=== PATIENT | female | born 1995 | race Caucasian/White ===

== ENCOUNTER 2016-07-08 15:21 | Emergency (ER) | payer OTHER ==
--- NOTE | 2016-07-08 16:20 | EDPHY ---
H & P Smoking Status: Never smoked Time Seen by Provider: 07/08/16 16:16 HPI/ROS: HPI: 21-year-old female presents to emergency department with chief concern head injury and left ankle injury. Slipped getting into the shower last night and struck the left side of her head on the wall. There was no loss of consciousness. She did not injure her neck or back. Reports left anterior ankle pain, bruising, swelling. Ambulating with discomfort. Reports 4/10 headache and foggy feeling. Reports associated nausea. No aggravating or alleviating factors. Denies dizziness, visual changes, midline neck pain, weakness, numbness, tingling of her extremities, vomiting, lack of coordination or balance. No other joint pain or injury. Student at [employer]. She is a restaurant hostess at a restaurant. ROS:10 point review of systems is negative other than as stated in HPI (Yumi Solomon) Social History: [employer] student (Yumi Solomon) Physical Exam: Vital signs stable, reviewed by me General: Awake, calm, cooperative. No acute distress. Head: Atraumatic, normalocephalic Face: Atraumatic EENT: PERRLA. EOMI. No papilledema. no conjunctival injection or hemorrhage. TMs intact, translucent. No evidence of bleeding or otorrhea. Nasal septum midline, nasal mucosa pink. no evidence of drainage. Uvula midline, pharynx without redness. Neck: No midline tenderness, supple, full range of motion Resp: Breathing unlabored. Lungs clear to auscultation bilaterally. CV: HRR. S1S2. No MRG. GI: Abdomen soft, nontender. Bowel sounds normoactive and positive x4 quadrants. Back: No midline thoracic or lumbar tenderness Skin: Warm, dry. No rashes noted. Capillary refill less than 2 seconds. Musculoskeletal: Strength equal and 5+ in all 4 extremities. Ecchymosis and mild swelling anterior ankle. Achilles intact without tenderness. Negative Hernandez test. No discomfort noted to the lateral, medial, or posterior malleolus. Negative calcaneal squeeze test. Negative midfoot torsion. No tenderness base of the 5th metatarsal. No syndesmosis. No pain to the proximal tibia or fibula. Toes without discomfort and with full ROM. There is limited ROM to . Neuro: No focal neuro deficit. CN II through XII intact. Rapid alternating hand movements intact. Finger to nose intact. Heel to beltre intact. Negative Romberg. Negative pronator drift. Gait even and steady. Memory and recall of 3/3 objects at 5 minutes intact. Upper and lower extremity DTRs 2+. Extremities: Full range of motion. (Yumi Solomon) Constitutional: Initial Vital Signs Temperature (C) 36.6 C 07/08/16 15:25 Heart Rate 71 07/08/16 15:25 Respiratory Rate 17 07/08/16 15:25 Blood Pressure 139/85 H 07/08/16 15:25 O2 Sat (%) 98 07/08/16 15:25 O2 Delivery Mode Room Air Allergies/Adverse Reactions: No Known Allergies Allergy (Unverified 07/08/16 15:24) Home Medications: Medication Instructions Recorded NK [No Known Home Meds] 07/08/16 Medical Decision Making - Diagnostics Imaging: I viewed and interpreted images myself ED Course/Re-evaluation: 21-year-old female presents to emergency department with head injury and left ankle injury. Symptoms are mild. CT is not warranted at this time. She has been counseled regarding need to return for worsening symptoms including worsening headache, dizziness, visual changes, vomiting. Verbalizes understanding and agrees to do so. Left ankle series is negative for evidence of fracture or dislocation. Placed in an Anoop wrap. Neurovascular status intact after application. She has been counseled regarding follow-up with primary care. (Yumi Solomon) Differential Diagnosis: Differential diagnosis includes but is not limited to head injury, concussion, intracranial bleed, ankle sprain, ankle fracture, dislocation (Yumi Solomon) Other Provider: The patient wasevaluatedand managed by themidlevel provider. My co- signature indicates that [facility] reviewed this chart and I agree with the findings and plan of care asdocumented. I am the secondary supervising physician. (Diane Carrasco) Departure - Departure Disposition: Home, Routine, Self-Care Clinical Impression: Head injury, Concussion, Ankle contusion Condition: Good Instructions: Concussion (ED), Head Injury (ED), Contusion in Adults (ED) Additional Instructions: Plan: ice ankle every 1-2 hours for 20 minutes for the the next 2-3 days Anoop wrap while up and about for support for the next 3-5 days You may use 1000 mg of Tylenol every 8 hours. Do not exceed the maximum dose in a 24 hour period which is 3 GM or 3000 mg. Return to ER immediately for any of the follow severe or worsening headaches, somnolence or confusion, restlessness, unsteadiness, or seizures, difficulty with vision, vomiting, fever, or stiff neck, bowel or bladder incontinence, weakness or numbness involving any part of the body. Follow up with primary care provider listed in your paperwork and the next 3 days for recheck without fail--When you call to schedule appointment, please let the office know you are an "ER follow up" appointment" Low stimulation, dark room, increase activity as tolerated Referrals: Linda Calvillo MD [Primary Care Provider] - As per Instructions Stand Alone Forms: School Excuse, Work Excuse
[2016-07-08 16:29] VITALS: BP 118/85; PULSE 58; RESP 18; TEMP 98.4; O2SAT 96
== END 2016-07-08 16:30 | disposition home or self-care (01) ==
DX: S06.0X0A Concussion without loss of consciousness, initial encounter (principal); S90.02XA Contusion of left ankle, initial encounter; W22.8XXA Striking against or struck by other objects, initial encounter